=== PATIENT | female | born 1990 | race African-American/Black ===

== ENCOUNTER 2017-12-23 14:13 | Emergency (ER) | payer MEDICAID ==
[~2017-12-23] VITALS: Ht 167.6 cm; Wt 90.0 kg
[2017-12-23 14:29] VITALS: BP 172/91
[2017-12-23] MEDS ORDERED: ALBUTEROL (0.083%) 2.5MG/3ML NEB HHN STA (14:31)
[2017-12-23] MEDS ORDERED: ALBUTEROL (0.083%) 2.5MG/3ML NEB ONE (23:10)
[2017-12-23] MEDS ORDERED: ALBUTEROL (0.083%) 2.5MG/3ML NEB HHN ONE (23:15)
[2017-12-23] MEDS ORDERED: METHYLPREDNISOLONE SOD SUCC 125 MG/2 ML VIAL IM ONE (23:30)
== END 2017-12-24 00:19 | disposition home or self-care (01) ==
LOC: ER 14:13
DX: R05 Cough (principal); R09.81 Nasal congestion; R06.02 Shortness of breath; R06.2 Wheezing; Z91.013 Allergy to seafood; Z98.890 Other specified postprocedural states
CPT/HCPCS: 71046; 94640; 96372; 99284; J2930; J7611; Z7610